=== PATIENT | female | born 1980 | race Caucasian/White ===

== ENCOUNTER 2017-06-04 03:11 | Inpatient (IN) | payer OTHER ==
[~2017-06-04] VITALS: Ht 167.6 cm; Wt 122.5 kg
[2017-06-04 03:20] VITALS: BP 142/100
--- NOTE | 2017-06-04 03:38 | NUR ---
TO ER BED 10
[2017-06-04] MEDS ORDERED: ONDANSETRON 4 MG/2 ML VIAL IVP ONE ×2 (03:40→06:45)
--- NOTE | 2017-06-04 03:40 | NUR ---
36/F CAME IN W C/O 01/10 RLQ SHARP PAIN, RADIATING TO LOWER MID ABD, ACUTE ONSET X 1 DAY. PT REPORTS N/V X3, DENIES DIARRHEA, DENIES FEVER/CHILLS, REPORTS DYSURIA X YESTERDAY. PT IN MODERATE DISTRESS D/T PAIN, SKIN IS WARM AND DRY. BS ACTIVE X4, ABD DISTENDED, SOFT, +TENDERNESS TO LOWER ABD. PMH: CHOLECYSTECTOMY, DENIES RX/OTC
[2017-06-04] MEDS ORDERED: MORPHINE SULFATE 4 MG/ML SYR IVP ONE (04:50)
[2017-06-04 05:12] LABS: BASOPHILS % (AUTO) 0.3 % (0.0-2.0); EOSINOPHILS % (AUTO) 0.3 % (0.0-4.0); HEMATOCRIT 44.8 % (36-48); HEMOGLOBIN 14.6 g/dL (12.0-16.0); LYMPHOCYTES # (AUTO) 1.8 K/uL (2.5-16.5); LYMPHOCYTES % (AUTO) 12.7 % (20.5-51.1); MEAN CORPUSCULAR HEMOGLOBIN 28 pg (27-31); MEAN CORPUSCULAR HGB CONC 33 g/dL (33-37); MEAN CORPUSCULAR VOLUME 85 fL (80-94); MONOCYTES # (AUTO) 0.5 K/uL (0.8-1.0); MONOCYTES % (AUTO) 3.8 % (1.7-9.3); NEUTROPHILS # (AUTO) 11.5 K/uL (1.8-7.7); PLATELET COUNT (AUTO) 386 K/uL (140-450); RED BLOOD CELL COUNT(AUTO) 5.28 MIL/uL (4.20-5.40); RED CELL DISTRIBUTION WIDTH 13.5 % (11.6-13.7); WHITE BLOOD COUNT (AUTO) 13.8 K/uL (4.8-10.8)
--- NOTE | 2017-06-04 05:15 | NUR ---
PT TAKEN TO CT
[2017-06-04 05:28] LABS: NEUTROPHILS % (AUTO) 82.9 % (42.2-75.2)
[2017-06-04 05:30] LABS: ALBUMIN 3.8 g/dL (3.4-5.0); ANION GAP 13.3 (8-16); CARBON DIOXIDE 27.7 mmol/L (21-32); CREATININE 0.8 mg/dL (0.6-1.3); TOTAL BILIRUBIN 0.4 mg/dL (0.0-1.0)
--- NOTE | 2017-06-04 06:00 | NUR ---
Patient appears to be resting comfortably in bed. Vital Signs within normal limits. Respirations even and unlabored.denies any pain at this time
[2017-06-04] MEDS ORDERED: DEXT 5% / NACL 0.45% 1,000 ML IV ONE (06:20)
[2017-06-04] MEDS: ONDANSETRON 4 MG/2 ML VIAL IVP PRN (06:46)
--- NOTE | 2017-06-04 06:55 | NUR ---
Patient will be admitted to care of [facility]. Admited to MS. Will go to room 119A. Belongings list completed. BEDSIDE Report to JEFFERSON ALLISON. IV SL AND PATENT
--- NOTE | 2017-06-04 07:20 | NUR ---
REPORT RECEIVED FROM MATERIAL CONTROL SUPERVISOR NURSE, PT AWAKE ALERT, RESP EVEN UNLABORED ON RA, SKIN WARM DRY COLOR WNL, ABD SOFT, TENDER, SMALL LUMP NOTED TO UMBELICAL AREA, BS HYPOACTIVE IN ALL 4 Q, PT C/O PAIN 11/10, NO PRN MEDS ORDERED, WILL NOTIFY MD. PLAN OF CARE REVIEWED, PT ORIENTED TO ROOM AND FLOOR, ALL SAFETY MEASURES IN PLACE, WILL CONTINUE TO MONITOR.
[2017-06-04] MEDS ORDERED: MORPHINE SULFATE 2 MG/ML SYR IVP PRN (07:40)
[2017-06-04] MEDS ORDERED: MORPHINE SULFATE 4 MG/ML SYR IVP PRN (07:40)
[2017-06-04 08:00] VITALS: BP 113/64
--- NOTE | 2017-06-04 08:34 | NUR ---
LARGE GREEN LIQ EMESIS X2, PT MEDICATED WITH ZOFRAN AND MORPHINE, WILL CONTINUE TO MONITOR.
[2017-06-04] MEDS: ACETAMINOPHEN 650 MG/20.3 ML UDC PO SCH ×3 (12:00→23:38)
--- NOTE | 2017-06-04 12:59 | NUR ---
PT SLEEPING QUIELTY IN NAD, RESP EVEN UNLABORED ON RA, PT APPEARS IN NO PAIN, NO NAUSEA OR VOMITING SINCE ZOFRAN, WILL INSERT NG SOON.
[2017-06-04] MEDS: metroNIDAZOLE 500 MG/NS PREMIX 100 ML IV SCH ×2 (13:46→21:51)
--- NOTE | 2017-06-04 14:15 | NUR ---
12F NGT INSERTED, PT THONY WELL, PLACEMENT VERIFIED WITH AUSCULTATION AND ASPIRATION, CONNECTED TO INTERMITTENT LOW SUCTION, SMALL AMOUNT OF GREEN DRAINAGE NOTED. PT DENIES PAIN OR NAUSEA, WILL CONTINUE TO MONITOR.
[2017-06-04 15:50] VITALS: BP 122/65
--- NOTE | 2017-06-04 16:03 | NUR ---
DR RAMIREZ AT BEDSIDE FOR EVAL
--- NOTE | 2017-06-04 16:55 | NUR ---
PT TAKEN TO OR BY KOBI ALLISON.
[2017-06-04] MEDS ORDERED: BUPIVACAINE-MPF 0.25% 30 ML VIAL INJ ONE (17:06)
[2017-06-04] MEDS ORDERED: ceFAZolin 1,000 MG VIAL ONE (17:06)
[2017-06-04] MEDS ORDERED: KETOROLAC 30 MG/ML VIAL ONE (17:14)
[2017-06-04] MEDS ORDERED: GLYCOPYRROLATE 0.2 MG/ML VIAL ONE (17:14)
[2017-06-04] MEDS ORDERED: NEOSTIGMINE 1:1000 10 MG/10 ML VIAL ONE (17:14)
[2017-06-04] MEDS ORDERED: SUCCINYLCHOLINE CHLORIDE 200 MG/10 ML VIAL IVP ONE (17:14)
[2017-06-04] MEDS ORDERED: DEXAMETHASONE 4 MG/ML VIAL ONE (17:14)
[2017-06-04] MEDS ORDERED: PROPOFOL 200 MG/20 ML VIAL IV ONE (17:14)
[2017-06-04] MEDS ORDERED: ROCURONIUM 50 MG/5 ML VIAL IV ONE (17:14)
[2017-06-04] MEDS ORDERED: LIDOCAINE 2% 100 MG/5 ML SYR IVP ONE (17:14)
[2017-06-04] MEDS ORDERED: DESFLURANE 240 ML BTL INH ONE (17:14)
[2017-06-04] MEDS ORDERED: ONDANSETRON 4 MG/2 ML VIAL ONE (17:14)
[2017-06-04] MEDS ORDERED: MIDAZOLAM 2 MG/2 ML VIAL ONE (17:22)
[2017-06-04] MEDS ORDERED: fentaNYL 0.05 MG/ML VIAL ONE (17:22)
[2017-06-04] MEDS ORDERED: ONDANSETRON 4 MG/2 ML VIAL IVP PRN (17:45)
[2017-06-04] MEDS ORDERED: HYDROmorphone PFS 2 MG/ML SYR IVP PRN (17:45)
--- NOTE | 2017-06-04 19:20 | NUR ---
PT NOT BACK FROM OR, REPORT GIVEN TO DEPARTMENT HEAD NURSE SMOOTH.
--- NOTE | 2017-06-04 19:21 | NUR ---
PATIENT REPORT RECEIVED FROM MORNING NURSE. PATIENT CURRENTLY IN OR, BUT WILL BE COMING BACK TO THE UNIT SOON.
[2017-06-04 19:35] VITALS: BP 125/69
--- NOTE | 2017-06-04 19:35 | NUR ---
PATIENT RETURNED TO THE UNIT FROM OR. REPORT RECEIVED FROM OR NURSE AT BEDSIDE. PATIENT IS AWAKE, ALERT AND ORIENTED. NO SIGNS AND SYMPTOMS OF DISTRESS NOTED. NO COMPLAINTS OF PAIN AT THIS TIME. NG TUBE NOTED IN RIGHT NARES, CONNECTED TO INTERMITTENT SUCTION. LOUIS CATHETER IS IN PLACE DRAINING CLEAR, YELLOW URINE. SURGICAL DRESSING NOTED NEAR UMBILICUS, DRESSING DRY AND INTACT. PLAN OF CARE DISCUSSED WITH PATIENT. BED IN LOWEST POSITION, SIDE RAILS UP AND CALL LIGHT WITHIN REACH. WILL CONTINUE TO MONITOR. Addendum: 06/04/17 at 2257 by Marquez Morales RN PATIENT ON O2 2L NC
[2017-06-04] MEDS ORDERED: HYDROGEN PEROXIDE 3% 240 ML BTL TP ONE (19:56)
--- NOTE | 2017-06-04 21:30 | NUR ---
PATIENT'S FAMILY PRESENT AT BEDSIDE TO SEE PATIENT. UPDATED THEM ON PATIENT'S CONDITION, AND PLAN OF CARE.
--- NOTE | 2017-06-04 22:56 | NUR ---
CHECKED ON PATIENT PATIENT IS ASLEEP. NO SIGNS AND SYMPTOMS OF DISTRESS NOTED. BREATHING EVEN AND UNLABORED. WILL CONTINUE TO MONITOR.
[2017-06-05] VITALS: BP 114/61
[2017-06-05 04:00] VITALS: BP 126/67
[2017-06-05] MEDS: metroNIDAZOLE 500 MG/NS PREMIX 100 ML IV SCH (04:33)
[2017-06-05] MEDS: ACETAMINOPHEN 650 MG/20.3 ML UDC PO SCH ×4 (06:00→23:27)
[2017-06-05 06:59] LABS: BASOPHILS # (AUTO) 0.2 K/uL (0.00-0.22); BASOPHILS % (AUTO) 1.8 % (0.0-2.0); EOSINOPHILS # (AUTO) 0.1 K/uL (0-0.4); EOSINOPHILS % (AUTO) 0.6 % (0.0-4.0); HEMATOCRIT 36.5 % (36-48); HEMOGLOBIN 12.1 g/dL (12.0-16.0); LYMPHOCYTES # (AUTO) 1.7 K/uL (2.5-16.5); LYMPHOCYTES % (AUTO) 15.9 % (20.5-51.1); MEAN CORPUSCULAR HEMOGLOBIN 29 pg (27-31); MEAN CORPUSCULAR HGB CONC 33 g/dL (33-37); MEAN CORPUSCULAR VOLUME 86 fL (80-94); MONOCYTES # (AUTO) 0.6 K/uL (0.8-1.0); MONOCYTES % (AUTO) 5.3 % (1.7-9.3); NEUTROPHILS # (AUTO) 7.9 K/uL (1.8-7.7); NEUTROPHILS % (AUTO) 76.4 % (42.2-75.2); PLATELET COUNT (AUTO) 299 K/uL (140-450); RED BLOOD CELL COUNT(AUTO) 4.25 MIL/uL (4.20-5.40); RED CELL DISTRIBUTION WIDTH 13.2 % (11.6-13.7); WHITE BLOOD COUNT (AUTO) 10.5 K/uL (4.8-10.8)
[2017-06-05 07:20] LABS: ANION GAP 11.2 (8-16); CARBON DIOXIDE 29.5 mmol/L (21-32); CREATININE 0.8 mg/dL (0.6-1.3); POTASSIUM 3.7 mmol/L (3.5-5.1)
--- NOTE | 2017-06-05 07:30 | NUR ---
RECEIVED PT ON BED AAOX4. NO SOB NOTED. NO C/O PAIN AT THIS TIME. IV RT FOREARM PATENT AND INTACT. CHEST DIMINISHED AIR ENTRY TO THE BASES. NG TUBE TO RT NARES CONNECTED TO LOW INTERMITTENT SUCTION DRAINING DARK GREEN ABDOMINAL FLUID. ABDOMEN LARGE BUT SOFT, WITH ABD SURGICAL INCISION, S/P HERNIA REPAIR 06/04/17, DRESSING DRY & INTACT. WITH LOUIS DRAINING MODERATE AMOUNTS OF SLIGHTLY BEREKET URINE. SCDs IN PLACE. INSTRUCTED PT TO CALL FOR ASSISTANCE, CALL LIGHT WITHIN REACH, PT VERBALIZED UNDERSTANDING.
--- NOTE | 2017-06-05 07:30 | NUR ---
PATIENT REPORT GIVEN TO MORNING NURSE AT BEDSIDE. PATIENT IS IN STABLE CONDITION
[2017-06-05 08:00] VITALS: BP 116/64
[2017-06-05] MEDS: ONDANSETRON 4 MG/2 ML VIAL IVP PRN (09:12)
[2017-06-05] MEDS: ENOXAPARIN 40 MG/0.4 ML SYR SUBQ SCH (09:17)
[2017-06-05] MEDS ORDERED: NACL 0.9% 500 ML IV SCH (09:45)
--- NOTE | 2017-06-05 10:23 | NUR ---
PATIENT HAS BEEN SCREENED AND CATEGORIZED HIGH NUTRITION RISK. PATIENT WILL BE SEEN WITHIN 1-2 DAYS OF ADMISSION. 06/04/17-06/05/[address]
--- NOTE | 2017-06-05 12:00 | NUR ---
LOUIS CATHETER AND NG TUBE DISCONTINUED ORDERED. DRAINED 250 MLS OF CLEAR, SLIGHTLY DARK BEREKET URINE. NG TUBE OUTPUT 100 MLS OF DARK GREEN FLUIDS.PT TOLERATED PROCEDURE WELL. NO COMPLAINTS MADE. WILL SERVE CLEAR LIQUIDS ORDERED.
[2017-06-05] MEDS: NACL 0.9% 1,000 ML IV SCH ×2 (12:18→23:27)
--- NOTE | 2017-06-05 13:00 | NUR ---
PT ABLE TO TOLERATE CLEAR LIQUIDS. NO N&V NOTED.
--- NOTE | 2017-06-05 15:00 | NUR ---
PT WALKED TO THE BATHROOM AND VOIDED FREELY. ACTIVITY TOLERATED WELL. NO COMPLAINTS MADE.
--- NOTE | 2017-06-05 15:39 | NUR ---
FAXED INITIAL REVIEW TO [facility] [phone] PHONE ELVI [phone]
[2017-06-05 16:00] VITALS: BP 110/54
--- NOTE | 2017-06-05 16:25 | NUR ---
06/05/2017 RD INITIAL ASSESSMENT COMPLETED PLEASE REFER TO NUTRITION ASSESSMENT UNDER CARE ACTIVITY FOR ESTIMATED NUTRITIONAL NEEDS. CONTINUE THE CLEAR LIQUID DIET TOLERATED ADVANCE DIET TO REGULAR TEXTURES MEDICALLY APPROPIATE RD TO FOLLOW-UP IN 2-3 DAYS PATIENT IS HIGH RISK. BRANDEN ESCOBAR, RD
--- NOTE | 2017-06-05 18:45 | NUR ---
PT TOLERATED CLEAR LIQUIDS FOR DINNER. NO N&V NOTED. PT ALSO STATED SHE IS PASSING GAS AND BURPING. WILL ENDORSE TO NEXT SHIFT NURSE FOR CONTINUITY OF CARE.
--- NOTE | 2017-06-05 19:30 | NUR ---
ASSUMED CARE OF PATIENT, AWAKE, ALERT AND ORIENTED. NO COMPLAINS. DRESSING DRY AND INTACT. CALL LIGHT WITHIN REACH.
--- NOTE | 2017-06-05 20:00 | NUR ---
PLAN OF CARE DISCUSSED WITH PATIENT, VERBALIZED UNDERSTANDING WELL. CALL LIGHT WITHIN REACH. CARE BOARD UPDATED.
--- NOTE | 2017-06-05 21:00 | NUR ---
DR. RAMIREZ AT BEDSIDE TO SEE PATIENT. ORDERS NOTED AND CARRIED OUT. ASSISTED TO BRP. SCD REAPPLIED. CALL LIGHT WITHIN REACH.
[2017-06-05 23:56] VITALS: BP 107/60
--- NOTE | 2017-06-05 23:58 | NUR ---
SLEEPING WELL. NO COMPLAINS. VITAL SIGNS STABLE. CALL LIGHT WITHIN REACH.
--- NOTE | 2017-06-06 03:00 | NUR ---
MOVE TO 105A VIA BED.
--- NOTE | 2017-06-06 04:40 | NUR ---
ASLEEP. NO COMPLAINS. CALL LIGHT WITHIN REACH.
[2017-06-06] MEDS: ONDANSETRON 4 MG/2 ML VIAL IVP PRN (05:53)
[2017-06-06] MEDS: ACETAMINOPHEN 650 MG/20.3 ML UDC PO SCH ×2 (05:53→12:18)
[2017-06-06 06:42] LABS: BASOPHILS # (AUTO) 0.1 K/uL (0.00-0.22); BASOPHILS % (AUTO) 1.1 % (0.0-2.0); EOSINOPHILS # (AUTO) 0.1 K/uL (0-0.4); EOSINOPHILS % (AUTO) 0.7 % (0.0-4.0); HEMATOCRIT 36.1 % (36-48); HEMOGLOBIN 12.1 g/dL (12.0-16.0); LYMPHOCYTES % (AUTO) 26.6 % (20.5-51.1); MEAN CORPUSCULAR HEMOGLOBIN 29 pg (27-31); MEAN CORPUSCULAR HGB CONC 34 g/dL (33-37); MEAN CORPUSCULAR VOLUME 85 fL (80-94); MONOCYTES # (AUTO) 0.5 K/uL (0.8-1.0); MONOCYTES % (AUTO) 6.7 % (1.7-9.3); NEUTROPHILS # (AUTO) 4.9 K/uL (1.8-7.7); NEUTROPHILS % (AUTO) 64.9 % (42.2-75.2); PLATELET COUNT (AUTO) 263 K/uL (140-450); RED BLOOD CELL COUNT(AUTO) 4.24 MIL/uL (4.20-5.40); WHITE BLOOD COUNT (AUTO) 7.6 K/uL (4.8-10.8)
--- NOTE | 2017-06-06 07:08 | NUR ---
ENDORSED CARE AT BEDSIDE WITH MIKE ASSISTANT WOMENS VOLLEYBALL COACH, PATIENT IN STABLE CONDITION.
--- NOTE | 2017-06-06 07:09 | NUR ---
Patient's Plan of Care was discussed and reviewed with PUNCH PRESS FEEDER: Leonard ALEXANDRA
--- NOTE | 2017-06-06 07:10 | NUR ---
ASSUMED CONTINUITY OF CARE. NO SIGNS AND SYMPTOMS OF ACUTE DISTRESS NOTED. INITIAL ASSESSMENT DONE. KEEP COMFORTABLE ON BED. EXPLAINED DIAGNOSIS, PLAN OF CARE, POST-OP CARE, PAIN MANAGEMENT TEACHING, USE OF CALL LIGHT/BED/TV/BATHROOM. VERBALIZED UNDERSTANDING. CALL LIGHT WITHIN REACH.
[2017-06-06 07:13] LABS: ALBUMIN 2.8 g/dL (3.4-5.0); ANION GAP 8.7 (8-16); CARBON DIOXIDE 28.6 mmol/L (21-32); CREATININE 0.7 mg/dL (0.6-1.3); POTASSIUM 3.3 mmol/L (3.5-5.1); TOTAL BILIRUBIN 0.4 mg/dL (0.0-1.0)
[2017-06-06 08:00] VITALS: BP 111/60
[2017-06-06] MEDS: ENOXAPARIN 40 MG/0.4 ML SYR SUBQ SCH (09:03)
[2017-06-06] MEDS ORDERED: NACL 0.9% 1,000 ML IV SCH (09:45)
[2017-06-06 12:00] VITALS: BP 115/78
[2017-06-06] MEDS ORDERED: POTASSIUM CHLORIDE 10 MEQ TABER PO SCH (14:00)
--- NOTE | 2017-06-06 14:30 | NUR ---
DR. GARVIN CAME, REVIEWED PT. CHART AND SEEN PT..
--- NOTE | 2017-06-06 15:45 | NUR ---
FOR DISCHARGE TODAY NO DC SUMMARY YET. ELVI FROM [facility] CALLED.
[2017-06-06] MEDS ORDERED: ACET-5629 PO (15:54)
--- NOTE | 2017-06-06 16:00 | NUR ---
EXPLAINED ABOUT MD D/C ORDER, D/C INSTRUCTION AND TEACHING, MD FOLLOW-UP, MD D/C PRESCRIPTION LIST EDUCATION, INCISION CARE, DIET, DISEASE MANAGEMENT TEACHING, PAIN MANAGEMENT TEACHING. VERBALIZED UNDERSTANDING.
--- NOTE | 2017-06-06 17:45 | NUR ---
D/C HOME VIA WHEELCHAIR. AWAKE, ALERT, AND ORIENTED X4. SPEECH CLEAR. NO C/O PAIN. NO SOB, NOTED. IN STABLE CONDITION. INFORMED CHARGE NURSE JO-ANN PACE.
== END 2017-06-06 17:45 | disposition home or self-care (01) | DRG 228 ==
LOC: MED 03:11 → MTU 06:30
PROVIDERS: ADMIT Hospitalist; ATTEND Hospitalist
PROC: 0WUF0JZ Supplement Abdominal Wall with Synthetic Substitute, Open Approach (ICD-10-PCS; principal; 2017-06-04 17:00)
DX: K42.0 Umbilical hernia with obstruction, without gangrene (principal); Z68.41 Body mass index [BMI] 40.0-44.9, adult; E66.01 Morbid (severe) obesity due to excess calories; D72.829 Elevated white blood cell count, unspecified; Z82.49 Family history of ischemic heart disease and other diseases of the circulatory system; Z83.3 Family history of diabetes mellitus; Z90.49 Acquired absence of other specified parts of digestive tract; Z98.51 Tubal ligation status
CPT/HCPCS: 36415; 74018; 80048; 80053; 81025; 83690; 85025; 86886; 86900; 86901; 87081; 96374; 96375; 99285; C1781; J0330; J0690; J1100; J1650; J1885; J2001; J2250; J2270; J2405; J2704; J2710; J3010; J3490; J7030; J7060; Q0092